=== PATIENT | female | born 1955 | race Caucasian/White ===

== ENCOUNTER 2017-09-06 12:44 | Outpatient (CLI) | payer SELFPAY ==
--- NOTE | 2017-09-06 16:20 | CT ---
PRE AND POSTCONTRAST ENHANCEMENT CT IMAGES OF THE CHEST AND ABDOMEN AND PELVIS 09/06/17 HISTORY: Lytic lesion of bone in right hip or 93.7. Contrast enhanced CT images of chest, abdomen and pelvis performed. Images demonstrates fibrous hoff es compatible with lung parenchymal interstitial fibrotic changes throughout the lungs. There is an approximately 18 x 29 x 17 mm fluid density lesion in the left upper pulmonary hilum. Thi s may represent necrotic lymph node or other cystic lesions. No other significant evidence of masses or lesions noted. Coronary artery calcifications seen. CT ABDOMEN AND PELVIS: The liver and spleen are unremarkable. The gallbladder has been surgically removed. The pancreas is u nremarkable. Adrenal glands are unremarkable. The kidneys are unremarkable. Abdominal aortic atherosc lerotic calcification seen. Iliac arteries are calcified. No definite evidence of pelvic lymphadenopathy seen. There is an anterior aspect right femoral neck soft tissue lesion with extension into the anterior co rtex of the right femoral head and neck. This may represent a lytic bony lesions including metastatic disease versus synovial sarcoma or other bony neoplasm. Correlate with MRI of right hip. There is also expansion noted in the central canal in the sacrum. These may represent Tarlov cysts. No other definite bony lesions seen. IMPRESSION: 1. Left hilar lesion which may represent a possible necrotic lymph node. 2. Right femoral neck lytic soft tissue mass. 3. Tarlov cyst. POS: [facility]
== END 2017-09-06 12:45 | disposition home or self-care (01) ==
LOC: RAD-BREN 12:44
DX: R93.7 Abnormal findings on diagnostic imaging of other parts of musculoskeletal system (principal); G54.8 Other nerve root and plexus disorders
CPT/HCPCS: 71260; 74177